=== PATIENT | male | born 1940 | race Caucasian/White ===

== ENCOUNTER 2017-10-22 10:21 | Day surgery (SDC) | payer MEDICARE, OTHER ==
[~2017-10-22 10:21] MED LIST: CHONDR SU A NA/HYALUR INTRAOC KIT (SURGICARE) ONE; EPINEPHRINE INJ/PF 1 MG/1 ML AMPULE ONE; KETOROLAC TROMETHAMINE 0.45% 4 DROP/0.4 ML DROPERETTE OD PRN; LIDOCAINE 1%/PHENYLEPHRINE 1.5% 1 ML VIAL ONE; MIDAZOLAM 2 MG/2 ML INJ ONE
[2017-10-22] MEDS: CYCLOPENTOLATE 0.2%/PHENYLEPHRINE 1% OPH SOLN 2 ML OD PRN ×3 (11:05→11:36)
[2017-10-22] MEDS: TROPICAMIDE 1% OPH SOLN 3 ML OD PRN ×3 (11:05→11:36)
[2017-10-22] MEDS: BESIFLOXACIN HCL 0.6% OPH SUSP 5 ML BOTTLE OD PRN ×3 (11:06→12:05)
[2017-10-22] MEDS: TETRACAINE HCL 0.5% OPH SOLN 2 ML OD PRN ×3 (11:07→11:41)
--- NOTE | 2017-10-22 20:51 | [facility] OPERATIVE REPORT E ---
[facility] Operative Report NAME: JAQUELIN TAPIA AGE: 77Y DATE OF SURGERY: 10/22/2017 ROOM: PREOPERATIVE DIAGNOSIS: CATARACT, RIGHT EYE. POSTOPERATIVE DIAGNOSIS: CATARACT, RIGHT EYE. OPERATION: Cataract extraction with insertion of an IOL of the right eye. SURGEON: ROBERTO WEI M.D. ANESTHESIA: Topical. PROCEDURE: After obtaining appropriate consent, the patient's right eye was prepped and draped in sterile fashion as well as the surgeon in a sterile manner and cataract surgery was started. First a paracentesis blade was used to make a side-port incision. Viscoelastic was used to inflate the anterior chamber. Next a 2.4 mm incision was made with a 2.4 mm blade, clear corneal temporally. A continuous capsulorrhexis was made using a cystotome and Utrata forceps. Following this hydrodissection was carried out to make the lens fully loose and mobile and it was rotated 90 degrees. Following this, a ytkzvi-fwz-qvsxnzt technique was used to phacoemulsify the lens with a CDE of 6.85. The remaining cortex was removed with irrigation/aspiration. Provisc was instilled into the capsular bag to inflate the bag. A SN60WF, 21.0 diopter lens was placed. The remaining viscoelastic material was removed with irrigation/aspiration. Following this, the incision was found to be watertight. Besivance was instilled into the eye and a protective shield was placed over the eye. The patient returned to the postoperative recovery in stable condition. DICTATING PHYSICIAN: ROBERTO WEI M.D. [id number] PHY#: [id number] ID: [id number] JOB#: [id number] ACCT: [id number] cc:ROBERTO WEI M.D. >
--- NOTE | 2017-10-22 20:51 | DISCHARGE SUMMARY E ---
Discharge Summary NAME: JAQUELIN TAPIA : 1940 AGE: 77Y ADMITTED: 10/22/2017 DISCHARGED: 10/22/2017 FINAL DIAGNOSIS: Cataract, right eye. HOSPITAL COURSE: This is a 77-year-old male who underwent cataract extraction of the left eye. He underwent surgery because he was having difficulty seeing small print. DISCHARGE INSTRUCTIONS: He should be on a regular diet. No bending at her waist, no heavy lifting. He should use her Besivance, Ilevro and Durezol at 3:00 p.m. and 8:00 p.m. Sleep with a rigid shield. I will see him for a 1-day postoperative tomorrow. DICTATING PHYSICIAN: ROBERTO WEI M.D. [id number] PHY#: [id number] ID: [id number] JOB#: [id number] ACCT: [id number] cc:ROBERTO WEI M.D. >
== END 2017-10-22 12:40 | disposition home or self-care (01) ==
LOC: SC 10:21
PROVIDERS: ATTEND Internal Medicine
DX: H25.813 Combined forms of age-related cataract, bilateral (principal); H57.03 Miosis; H43.813 Vitreous degeneration, bilateral; I10 Essential (primary) hypertension; J45.909 Unspecified asthma, uncomplicated; K21.9 Gastro-esophageal reflux disease without esophagitis; Z87.891 Personal history of nicotine dependence; Z88.8 Allergy status to other drugs, medicaments and biological substances; Z88.1 Allergy status to other antibiotic agents; Z79.01 Long term (current) use of anticoagulants; Z79.899 Other long term (current) drug therapy
CPT/HCPCS: 66984; V2632; J2250; J3490; A9270; J0171; J2370; 142

== ENCOUNTER 2017-11-26 14:30 | Emergency (ER) | payer MEDICARE ==
[2017-11-26] MEDS ORDERED: DIPHENHYDRAMINE HCL 50 MG/ML VIAL IV ONE (14:58)
[2017-11-26] MEDS ORDERED: FENTANYL CITRATE INJ/PF 100 MCG/2 ML AMPUL IV ONE ×2 (14:58→15:50)
--- NOTE | 2017-11-26 14:59 | ER Document Report ---
ED Medical Screen (RME) - General Chief Complaint: Fall Injury Stated Complaint: FALL,SHOULDER AND BACK PAIN Time Seen by Provider: 11/26/17 14:50 Notes: 77 years old male, with multiple medical problem including valvotomy, on Coumadin, fell off from a ladder and hurt his left lateral side of the chest and back. Presents today with pain and discomfort. Denies any loss of consciousness denies any head injury, denies any neck pain neck stiffness. Denies any nausea vomiting abdominal pain. Ambulatory. Denies any injury to the upper limbs or lower limbs. TRAVEL OUTSIDE OF THE [place] IN LAST 30 DAYS: No - Related Data Allergies/Adverse Reactions: diphenhydramine HCl [From Benadryl] Allergy (Mild, Verified 11/26/17 14:33) rash hydrocodone [Hydrocodone] Allergy (Mild, Verified 11/26/17 14:33) rash levofloxacin [From Levaquin] Allergy (Mild, Verified 11/26/17 14:33) rash amiodarone [Amiodarone] Allergy (Verified 11/26/17 14:33) Hives ampicillin [Ampicillin] Allergy (Verified 11/26/17 14:33) Hives cephalexin [Cephalexin] Allergy (Verified 11/26/17 14:33) Hives Cephalosporins Allergy (Verified 11/26/17 14:33) Hives clindamycin [Clindamycin] Allergy (Verified 11/26/17 14:33) Hives gentamicin [Gentamicin] Allergy (Verified 11/26/17 14:33) Hives hydromorphone [Hydromorphone] Allergy (Verified 11/26/17 14:33) Hives vancomycin [Vancomycin] Allergy (Verified 11/26/17 14:33) Hives Past Medical History - Past Medical History Cardiac Medical History: Reports: Hx Hypertension - MEDICATED TO MAINTAIN HEATHY BP FOR MITRAL VALVE Denies: Hx Coronary Artery Disease, Hx Heart Attack Pulmonary Medical History: Reports: Hx Pneumonia - hx of 2004 Denies: Hx Asthma, Hx Bronchitis, Hx COPD Neurological Medical History: Denies: Hx Cerebrovascular Accident, Hx Seizures GI Medical History: Denies: Hx Hepatitis, Hx Hiatal Hernia, Hx Ulcer Musculoskeltal Medical History: Denies Hx Arthritis Infectious Medical History: Denies: Hx Hepatitis Past Surgical History: Reports: Hx Cardiac Surgery - valve replacement 1999, Hx Open Heart Surgery - 1999. Denies: Hx Pacemaker Physical Exam - Vital signs Vitals: Temp Pulse Resp BP Pulse Ox 97.4 F 64 18 121/60 96 11/26/17 14:38 11/26/17 14:38 11/26/17 14:38 11/26/17 14:38 11/26/17 14:38 Course - Vital Signs Vital signs: Temp Pulse Resp BP Pulse Ox 97.4 F 64 18 121/60 96 11/26/17 14:38 11/26/17 14:38 11/26/17 14:38 11/26/17 14:38 11/26/17 14:38 Doctor's Discharge - Discharge Referrals: OSVALDO GLASGOW MD [Primary Care Provider] - Follow up as needed
[2017-11-26 15:26] LABS: HEMOGLOBIN 15.5 g/dL (13.5-17.0); MEAN CORPUSCULAR HEMOGLOBIN 31.4 pg (27.0-33.4); MEAN CORPUSCULAR HGB CONC 33.7 g/dL (32.0-36.0); MEAN CORPUSCULAR VOLUME 93 fl (80-97); PLATELET COUNT 163 10^3/uL (150-450); RED BLOOD COUNT 4.94 10^6/uL (4.35-5.55); RED CELL DISTRIBUTION WIDTH 13.3 % (11.5-14.0); WHITE BLOOD COUNT 9.6 10^3/uL (4.0-10.5)
[2017-11-26 15:33] LABS: INTERNATIONAL RATION (INR) 3.18
[2017-11-26 15:46] LABS: ALANINE AMINOTRANSFERASE 38 U/L (21-72); ALBUMIN 4.6 g/dL (3.5-5.0); ALKALINE PHOSPHATASE 56 U/L (38-126); ANION GAP 9 (5-19); ASPARTATE AMINO TRANSFERASE 43 U/L (17-59); BILIRUBIN,DIRECT 0.4 mg/dL (0.0-0.4); BILIRUBIN,TOTAL 0.9 mg/dL (0.2-1.3); BLOOD UREA NITROGEN 32 mg/dL (7-20); CALCIUM 9.3 mg/dL (8.4-10.2); CARBON DIOXIDE 28 mmol/L (22-30); CHLORIDE 104 mmol/L (98-107); GLUCOSE 97 mg/dL (75-110); POTASSIUM 5.2 mmol/L (3.6-5.0); SODIUM 140.6 mmol/L (137-145); TOTAL PROTEIN 7.5 g/dL (6.3-8.2)
--- NOTE | 2017-11-26 15:49 | RADIOLOGY REPORT (SQ) ---
EXAM DESCRIPTION: CT HEAD WITHOUT COMPLETED DATE/TIME: 11/26/2017 3:40 pm REASON FOR STUDY: fall, injury-head, cervical, thoracic, lumbar spin COMPARISON: None. TECHNIQUE: Axial images acquired through the brain without intravenous contrast. Images reviewed wi th bone, brain and subdural windows. Images stored on PACS. All CT scanners at this facility use dose modulation, iterative reconstruction, and/or weight based d osing when appropriate to reduce radiation dose to as low as reasonably achievable (ALARA). [facility]: Dose Right [facility]: CareDose [facility]: Dose Right [facility]: Teradose 4D [facility]: Smart [employer] RADIATION DOSE: CT Rad equipment meets quality standard of care and radiation dose reduction techniq ues were employed. CTDIvol: 53.2 mGy. DLP: 1017 mGy-cm. mGy. LIMITATIONS: None. FINDINGS: VENTRICLES: Prominent. CEREBRUM: No masses. No hemorrhage. No midline shift. Areas of low density in the white matter mos t likely due to chronic micro-vascular ischemic change. No evidence for acute infarction. CEREBELLUM: No masses. No hemorrhage. No alteration of density. No evidence for acute infarction. EXTRAAXIAL SPACES: Mild age-related involutional change. No fluid collections. No masses. ORBITS AND GLOBE: No intra- or extraconal masses. Normal contour of globe without masses. CALVARIUM: No fracture. PARANASAL SINUSES: No fluid or mucosal thickening. SOFT TISSUES: No mass or hematoma. OTHER: No other significant finding. IMPRESSION: MILD CHRONIC CHANGES OF ATROPHY AND MICROVASCULAR ISCHEMIA. NO ACUTE PROCESS. EVIDENCE OF ACUTE STROKE: NO. TECHNICAL DOCUMENTATION: JOB ID: [id number] Quality ID # [id number]: Final reports with documentation of one or more dose reduction techniques (e.g., Au tomated exposure control, adjustment of the mA and/or kV according to patient size, use of iterative reconstruction technique) 2010 [employer]- All Rights Reserved Reading location - IP/workstation name: [email or web address]
--- NOTE | 2017-11-26 15:50 | RADIOLOGY REPORT (SQ) ---
EXAM DESCRIPTION: CT LUMBAR SPINE WITHOUT COMPLETED DATE/TIME: 11/26/2017 3:40 pm REASON FOR STUDY: fall, injury-head, cervical, thoracic, lumbar spin COMPARISON: None. TECHNIQUE: Axial images acquired through the lumbar spine without intravenous contrast. Images revi ewed with lung, soft tissue and bone windows. Reconstructed coronal and sagittal MPR images reviewed . All images stored on PACS. All CT scanners at this facility use dose modulation, iterative reconstruction, and/or weight based d osing when appropriate to reduce radiation dose to as low as reasonably achievable (ALARA). [facility]: Dose Right [facility]: CareDose [facility]: Dose Right [facility]: Teradose 4D [facility]: Aerospike RADIATION DOSE: mGy. LIMITATIONS: None. FINDINGS: SEGMENTATION: Normal. No transitional anatomy. ALIGNMENT: Normal. VERTEBRAL BODIES: No fractures. No dislocation. No acute findings. DISCS: There is annular disc bulging at L5-S1. PEDICLES, TRANSVERSE PROCESSES: No fractures. No dislocation. No acute findings. FACETS, POSTERIOR ELEMENTS: No fractures. No dislocation. No spinal stenosis. HARDWARE: None in the spine. VISUALIZED RIBS: No fractures. SOFT TISSUES: No significant or acute finding in adjacent soft tissues. OTHER: No other significant finding. IMPRESSION: Annular disc bulging at L5-S1. No acute findings. TECHNICAL DOCUMENTATION: JOB ID: [id number] Quality ID # [id number]: Final reports with documentation of one or more dose reduction techniques (e.g., Au tomated exposure control, adjustment of the mA and/or kV according to patient size, use of iterative reconstruction technique) 2010 [employer]- All Rights Reserved Reading location - IP/workstation name: [email or web address]
--- NOTE | 2017-11-26 15:50 | RADIOLOGY REPORT (SQ) ---
EXAM DESCRIPTION: CT CERVICAL SPINE WITHOUT COMPLETED DATE/TIME: 11/26/2017 3:40 pm REASON FOR STUDY: fall, injury-head, cervical, thoracic, lumbar spin COMPARISON: None. TECHNIQUE: Axial images acquired through the cervical spine without intravenous contrast. Images re viewed with lung, soft tissue and bone windows. Reconstructed coronal and sagittal MPR images review ed. Images stored on PACS. All CT scanners at this facility use dose modulation, iterative reconstruction, and/or weight based d osing when appropriate to reduce radiation dose to as low as reasonably achievable (ALARA). [facility]: Dose Right [facility]: CareDose [facility]: Dose Right [facility]: Teradose 4D [facility]: [employer] RADIATION DOSE: CT Rad equipment meets quality standard of care and radiation dose reduction techniq ues were employed. CTDIvol: 19.5 mGy. DLP: 441 mGy-cm. mGy. LIMITATIONS: None. FINDINGS: ALIGNMENT: Anatomic. MINERALIZATION: Normal. VERTEBRAL BODIES: No fractures or dislocation. DISCS: Multilevel disc space narrowing with osteophytes. FACETS, LATERAL MASSES, POSTERIOR ELEMENTS: Facet arthropathy. No fractures. No dislocation. No ac yuri findings. HARDWARE: None in the spine. VISUALIZED RIBS: No fractures. LUNG APICES AND SOFT TISSUES: No significant or acute findings. OTHER: No other significant finding. IMPRESSION: CHRONIC DEGENERATIVE CHANGES. NO ACUTE FINDINGS. TECHNICAL DOCUMENTATION: JOB ID: [id number] Quality ID # [id number]: Final reports with documentation of one or more dose reduction techniques (e.g., Au tomated exposure control, adjustment of the mA and/or kV according to patient size, use of iterative reconstruction technique) 2010 [email or web address]- All Rights Reserved Reading location - IP/workstation name: [email or web address]
--- NOTE | 2017-11-26 15:51 | RADIOLOGY REPORT (SQ) ---
EXAM DESCRIPTION: CT CHEST WITHOUT COMPLETED DATE/TIME: 11/26/2017 3:40 pm REASON FOR STUDY: fall, injury-head, cervical, thoracic, lumbar spin COMPARISON: None. TECHNIQUE: CT scan performed of the chest without intravenous contrast. Images reviewed with lung, soft tissue and bone windows. Reconstructed coronal and sagittal MPR images reviewed. All images st ored on PACS. All CT scanners at this facility use dose modulation, iterative reconstruction, and/or weight based d osing when appropriate to reduce radiation dose to as low as reasonably achievable (ALARA). [facility]: Dose Right [facility]: CareDose [facility]: Dose Right [facility]: Teradose 4D [facility]: [employer] RADIATION DOSE: CT Rad equipment meets quality standard of care and radiation dose reduction techniq ues were employed. CTDIvol: 14.4 mGy. DLP: 677 mGy-cm. mGy. LIMITATIONS: No technical limitations. FINDINGS: LUNGS AND PLEURA: No masses, infiltrates, or pneumothorax. No pleural effusions or pleura l calcifications. HILAR AND MEDIASTINAL STRUCTURES: No identified masses or abnormal nodes. No obvious aneurysm. HEART AND VASCULAR STRUCTURES: No aneurysm. No pericardial effusion. UPPER ABDOMEN: A couple of low-density hepatic lesions are seen. THYROID AND OTHER SOFT TISSUES: No masses. No adenopathy. BONES: No significant finding. HARDWARE: Sternotomy wires. Heart valve. OTHER: No other significant findings. IMPRESSION: No acute findings in the thorax. There are what appear to be a couple of hepatic cysts. TECHNICAL DOCUMENTATION: JOB ID: [id number] Quality ID # [id number]: Final reports with documentation of one or more dose reduction techniques (e.g., Au tomated exposure control, adjustment of the mA and/or kV according to patient size, use of iterative reconstruction technique) 2010 [employer]- All Rights Reserved Reading location - IP/workstation name: [email or web address]
--- NOTE | 2017-11-26 15:53 | ER Document Report ---
ED General - General Chief Complaint: Fall Injury Stated Complaint: FALL,SHOULDER AND BACK PAIN Time Seen by Provider: 11/26/17 14:50 Mode of Arrival: Ambulatory Information source: Patient, Relative, [facility] Records Notes: 77-year-old male with hypertension, hyperlipidemia, chronic kidney disease presents with complaint of back pain. Patient states that just prior to arrival he was on top of a ladder approximately 6 feet off the ground when the ladder slipped from underneath him causing him to fall backwards striking his back on the corner of the shed. Patient denies any loss of consciousness. He does state that he was not able to get up without assistance. He currently denies headache, blurred vision, nausea, vomiting, chest pain, abdominal pain. He denies any preceding chest pain, dizziness. Patient is on Coumadin. TRAVEL OUTSIDE OF THE [place] IN LAST 30 DAYS: No - HPI Onset: Just prior to arrival Onset/Duration: Sudden Quality of pain: Throbbing Severity: Moderate Associated symptoms: None Exacerbated by: Movement Relieved by: Remaining still Similar symptoms previously: No Recently seen / treated by doctor: No - Related Data Allergies/Adverse Reactions: diphenhydramine HCl [From Benadryl] Allergy (Mild, Verified 11/26/17 14:33) rash hydrocodone [Hydrocodone] Allergy (Mild, Verified 11/26/17 14:33) rash levofloxacin [From Levaquin] Allergy (Mild, Verified 11/26/17 14:33) rash amiodarone [Amiodarone] Allergy (Verified 11/26/17 14:33) Hives ampicillin [Ampicillin] Allergy (Verified 11/26/17 14:33) Hives cephalexin [Cephalexin] Allergy (Verified 11/26/17 14:33) Hives Cephalosporins Allergy (Verified 11/26/17 14:33) Hives clindamycin [Clindamycin] Allergy (Verified 11/26/17 14:33) Hives gentamicin [Gentamicin] Allergy (Verified 11/26/17 14:33) Hives hydromorphone [Hydromorphone] Allergy (Verified 11/26/17 14:33) Hives vancomycin [Vancomycin] Allergy (Verified 11/26/17 14:33) Hives Past Medical History - General Information source: Patient, Relative, [facility] Records - Social History Smoking Status: Former Smoker Chew tobacco use (# tins/day): No Frequency of alcohol use: None Drug Abuse: None Family History: Reviewed & Not Pertinent Patient has suicidal ideation: No Patient has homicidal ideation: No - Past Medical History Cardiac Medical History: Reports: Hx Hypercholesterolemia, Hx Hypertension - MEDICATED TO MAINTAIN HEATHY BP FOR MITRAL VALVE Denies: Hx Coronary Artery Disease, Hx Heart Attack Pulmonary Medical History: Reports: Hx Pneumonia - hx of 2004 Denies: Hx Asthma, Hx Bronchitis, Hx COPD Neurological Medical History: Denies: Hx Cerebrovascular Accident, Hx Seizures Renal/ Medical History: Denies: Hx Peritoneal Dialysis GI Medical History: Denies: Hx Hepatitis, Hx Hiatal Hernia, Hx Ulcer Musculoskeletal Medical History: Denies Hx Arthritis Infectious Medical History: Denies: Hx Hepatitis Past Surgical History: Reports: Hx Cardiac Surgery - valve replacement 1999, Hx Open Heart Surgery - 1999. Denies: Hx Pacemaker Review of Systems - Review of Systems Notes: REVIEW OF SYSTEMS: CONSTITUTIONAL : Denies fever, chills, or sweats. Denies recent illness. Denies weight loss, recent hospitalizations. EENT: Denies visual changes, eye pain. Denies sore throat, oral lesions, difficulty swallowing. CARDIOVASCULAR: Denies chest pain. Denies palpitations. Denies lower extremity edema. RESPIRATORY: Denies cough. Denies shortness of breath, wheezing. GASTROINTESTINAL: Denies abdominal pain or distention. Denies nausea, vomiting , or diarrhea. Denies blood in vomitus, stools, or per rectum. Denies black, tarry stools. Denies constipation. GENITOURINARY: Denies difficulty urinating, painful urination, frequency, blood in urine, testicular pain or penile discharge. MUSCULOSKELETAL: Denies joint pain or swelling. SKIN: Denies rash, lesions or sores. HEMATOLOGIC : Denies easy bruising or bleeding. LYMPHATIC: Denies swollen glands. NEUROLOGICAL: Denies confusion or altered mental status. Denies loss of consciousness. Denies dizziness or lightheadedness. Denies headache. Denies weakness or paralysis. Denies problems difficulty with ambulation, slurred speech. Denies sensory loss, numbness, or tingling. Denies seizures. PSYCHIATRIC: Denies anxiety or stress. Denies depression, suicidal ideation, or Physical Exam - Vital signs Vitals: Temp Pulse Resp BP Pulse Ox 97.4 F 64 18 121/60 96 11/26/17 14:38 11/26/17 14:38 11/26/17 14:38 11/26/17 14:38 11/26/17 14:38 Interpretation: Normal - Notes Notes: PHYSICAL EXAMINATION: GENERAL: Well-appearing, well-nourished and in no acute distress. HEAD: Atraumatic, normocephalic. EYES: Pupils equal round and reactive to light, extraocular movements intact, sclera anicteric, conjunctiva are normal. ENT: Nares patent, oropharynx clear without exudates. Moist mucous membranes. NECK: Normal range of motion, supple without lymphadenopathy LUNGS: Breath sounds clear to auscultation bilaterally and equal. No wheezes rales or rhonchi. HEART: Regular rate and rhythm without murmurs ABDOMEN: Soft, nontender, nondistended abdomen. No guarding, no rebound. No masses appreciated. Musculoskeletal: Normal range of motion, no pitting or edema. No cyanosis. Midline tenderness to the thoracic spine at the level of T7. NEUROLOGICAL: Cranial nerves grossly intact. Normal speech, normal gait. Normal sensory, motor exams PSYCH: Normal mood, normal affect. SKIN: Large superficial abrasion across upper back Course - Re-evaluation Re-evalutation: 11/28/17 02:20 Laboratory 11/26/17 11/26/17 11/26/17 15:15 15:15 15:15 WBC 9.6 RBC 4.94 Hgb 15.5 Hct 46.0 MCV 93 MCH 31.4 MCHC 33.7 RDW 13.3 Plt Count 163 PT 34.0 H INR 3.18 Sodium 140.6 Potassium 5.2 H Chloride 104 Carbon Dioxide 28 Anion Gap 9 BUN 32 H Creatinine 1.82 H Est GFR ( Amer) 44 L Est GFR (Non-Af Amer) 36 L Glucose 97 Calcium 9.3 Total Bilirubin 0.9 Direct Bilirubin 0.4 Neonat Total Bilirubin Not Reportable Neonat Direct Bilirubin Not Reportable Neonat Indirect Bili Not Reportable AST 43 ALT 38 Alkaline Phosphatase 56 Total Protein 7.5 Albumin 4.[address] 11/26/17 14:55 IMPRESSION: CHRONIC DEGENERATIVE CHANGES. NO ACUTE FINDINGS. Chest CT 11/26/17 14:55 IMPRESSION: No acute findings in the thorax. There are what appear to be a couple of hepatic cysts. Head CT 11/26/17 14:55 IMPRESSION: MILD CHRONIC CHANGES OF ATROPHY AND MICROVASCULAR ISCHEMIA. NO ACUTE PROCESS. EVIDENCE OF ACUTE STROKE: NO. Lumbar Spine CT 11/26/17 14:55 IMPRESSION: Annular disc bulging at L5-S1. No acute findings. 77-year-old male with hypertension, hyperlipidemia, chronic kidney disease presents with complaint of back pain. Patient states that just prior to arrival he was on top of a ladder approximately 6 feet off the ground when the ladder slipped from underneath him causing him to fall backwards striking his back on the corner of the shed. Patient denies any loss of consciousness. He does state that he was not able to get up without assistance. He currently denies headache, blurred vision, nausea, vomiting, chest pain, abdominal pain. He denies any preceding chest pain, dizziness. Patient is on Coumadin. Vital signs stable upon arrival. Exam significant for midline tenderness of thoracic spine. CT of the head, chest, cervical spine and lumbar spine were ordered by provider in triage and negative for any acute findings. Patient found to have mildly elevated potassium 5.2. CMP does show renal insufficiency which the patient reports to be chronic. EKG shows no concerning changes. Patient did receive fentanyl during his ED course. On reevaluation he states his pain has improved. Presentation of a well appearing elderly patient in no acute distress , vitals within normal limits after a mechanical fall. Patient denies a syncopal episode as the cause for today's fall. No focal neurologic deficits on exam, no evidence of basilar skull fracture on exam without evidence of hemotympanum, raccoon eyes, or periauricular hematoma. No papilledema. Patient is on anticoagulation. GCS is 15. No loss of consciousness. No episodes of vomiting. However, based on patient's age a CT of the head has been obtained which is negative for any acute intracranial bleed. Likewise, patient was unable to be clinically cleared due to age by [place] cervical spine criteria. A CT of the cervical spine was also obtained and likewise is negative for any acute fracture. Patient has no focal deformities or limited range of motion in any joint space. Chest and abdominal exam are benign without any focal tenderness, shortness of breath, or bruising over the chest or abdominal wall. Patient has no flank tenderness. There is no obvious findings on trauma exam today and therefore no further imaging or evaluation will be obtained at this time. At this time will discharge with return precautions and follow-up recommendations. Verbal discharge instructions given a the bedside and opportunity for questions given. Medication warnings reviewed. Patient is in agreement with this plan and has verbalized understanding of return precautions and the need for primary care follow-up in the next 24-72 hours. 11/28/17 02:20 11/28/17 02:21 11/28/17 02:22 - Vital Signs Vital signs: Temp Pulse Resp BP Pulse Ox 97.4 F 64 20 138/79 H 96 11/26/17 14:38 11/26/17 14:38 11/26/17 18:59 11/26/17 18:59 11/26/17 18:59 - Laboratory Result Diagrams: 11/26/17 15:15 11/26/17 15:15 Laboratory results interpreted by me: 11/26/17 11/26/17 15:15 15:15 PT 34.0 H Potassium 5.2 H BUN 32 H Creatinine 1.82 H Est GFR ( Amer) 44 L Est GFR (Non-Af Amer) 36 L - Diagnostic Test Radiology reviewed: Image reviewed, Reports reviewed Discharge - Discharge Clinical Impression: Abrasion Fall Qualifiers: Encounter type: initial encounter Qualified Code(s): W19.XXXA - Unspecified fall, initial encounter Contusion, back Qualifiers: Encounter type: initial encounter Laterality: unspecified laterality Qualified Code(s): S20.229A - Contusion of unspecified back wall of thorax, initial encounter Strain of thoracic spine Qualifiers: Encounter type: initial encounter Qualified Code(s): S29.019A - Strain of muscle and tendon of unspecified wall of thorax, initial encounter Condition: Good Disposition: HOME, SELF-CARE Instructions: Abrasions ([facility]), Contusion ([facility]), Kidney Function Abnormality ( [facility]), Upper Back Strain ([facility]) Additional Instructions: You have been seen in the Emergency Department (ED) today following a fall. Your workup today did not reveal any injuries that require you to stay in the hospital. You can expect, though, to be stiff and sore for the next several days. You can take Tylenol 1000 mg every 6 hours as needed for pain. Do not take Tylenol with the [place]. Please take one or the other. You can apply a hot pack or electric heating pad to the sore areas. You can also use topical "Aspercreme with lidocaine" to sore areas as needed. Please follow up with your primary care doctor as soon as possible regarding today's ED visit and your recent fall. Call your doctor or return to the ED if you develop a sudden or severe headache , confusion, slurred speech, facial droop, weakness or numbness in any arm or leg, extreme fatigue, vomiting more than two times, severe abdominal pain, or other symptoms that concern you. Most prescribed medications have multiple side effects. The safest thing to do is when filling your prescription please speak to your pharmacist regarding possible interactions with your normal home medications and over the counter medications such as Ibuprofen, Tylenol, Benadryl.. If you experience any symptoms that cause you discomfort or concern you should discontinue the medication immediately and return to the emergency room or call your primary care physician. Prescriptions: Hydrocodone/Acetaminophen [[place] 5-325 mg Tablet] 1 tab PO Q6H #10 tablet Tramadol HCl 50 mg PO Q8H #12 tablet Referrals: OSVALDO GLASGOW MD [Primary Care Provider] - Follow up as needed
[2017-11-26] MEDS ORDERED: NORMAL SALINE 1000 ML 1,000 ML IV ONE (16:55)
[2017-11-26 19:07] VITALS: BP 138/79
--- NOTE | 2017-11-26 20:03 | EKG REPORT ---
SEVERITY:- NORMAL ECG - SINUS RHYTHM : Confirmed by: Carmen Raygoza MD 26-Nov-2017 20:03:01
== END 2017-11-26 19:07 | disposition home or self-care (01) ==
LOC: ER 14:30
DX: S29.019A Strain of muscle and tendon of unspecified wall of thorax, initial encounter (principal); S20.229A Contusion of unspecified back wall of thorax, initial encounter; S20.419A Abrasion of unspecified back wall of thorax, initial encounter; M54.9 Dorsalgia, unspecified; I10 Essential (primary) hypertension; E78.5 Hyperlipidemia, unspecified; N18.9 Chronic kidney disease, unspecified; W11.XXXA Fall on and from ladder, initial encounter; Z87.891 Personal history of nicotine dependence; Z79.01 Long term (current) use of anticoagulants
CPT/HCPCS: 93005; 99284; 96361; 96374; 36415; 85027; 85610; 80053; 70450; 71250; 72125; 72131; 93010; J3010

== ENCOUNTER → 2018-04-07 | Day surgery (SDC) | payer MEDICARE, OTHER ==
--- NOTE | 2018-04-07 15:20 | RADIOLOGY REPORT (SQ) ---
EXAM DESCRIPTION: ARTHRO SHOULDER INJECTION; FLUORO/NEEDLE PLACEMENT COMPLETED DATE/TIME: 04/07/2018 3:08 pm REASON FOR STUDY: M75.102 UNSP ROTATR-CUFF TEAR/RUPTR OF LEFT SHOULDER, NOT TRAUMA M75.102 UNSP ROT ATR-CUFF TEAR/RUPTR OF LEFT SHOULDER, NOT TR COMPARISON: None. FLUOROSCOPY TIME: 17 seconds 1 digital fluoroscopic image saved to PACS. LIMITATIONS: None. PROCEDURE: Procedure, risks, benefits and alternatives explained to patient who then gave written co nsent. The posterior left glenohumeral joint at the shoulder was marked and a time out was called for correct procedure verification. Posterior entry site marked using fluoroscopic guidance. Shoulder prepped and draped using sterile technique. Local anesthesia achieved using 6 mL of 1% lidocaine inj ection. 22 gauge spinal needle introduced into the joint space under direct fluoroscopic visualizati on. Non-ionic contrast instilled to confirm intra-articular position. Dilute Omnipaque solution then injected. Needle removed and entry site covered with sterile bandage. No immediate complications not ed. TECHNIQUE: Digital images acquired during fluoroscopy and stored on PACS. Patient immediately take n to the MR suite for additional imaging. INJECTION LOCATION: Left posterior glenohumeral joint at the shoulder CONTRAST TYPE AND AMOUNT: 1 mL of Omnipaque 300 injected to confirm intra-articular needle placement followed by 10 mL of dilute Omnipaque/ saline for CT arthrogram. IMPRESSION: SUCCESSFUL NEEDLE PLACEMENT AND INJECTION FOR LEFT SHOULDER CT ARTHROGRAM USING POSTERIO R APPROACH. COMMENT: Quality ID [id number]: Final reports for procedures using fluoroscopy that document radiation exp osure indices, or exposure time and number of fluorographic images (if radiation exposure indices are not available) TECHNICAL DOCUMENTATION: JOB ID: [id number] [employer]- All Rights Reserved Reading location - IP/workstation name: [email or web address] [facility]-
--- NOTE | 2018-04-07 15:25 | RADIOLOGY REPORT (SQ) ---
EXAM DESCRIPTION: CT LT UPPER EXTREMITY WITH COMPLETED DATE/TIME: 04/07/2018 3:11 pm REASON FOR STUDY: M75.102 UNSP ROTATR-CUFF TEAR/RUPTR OF LEFT SHOULDER, NOT TRAUMA M75.102 UNSP ROT ATR-CUFF TEAR/RUPTR OF LEFT SHOULDER, NOT TR COMPARISON: None. TECHNIQUE: Axial imaging performed through the leftshoulder with reformatted oblique coronal and obl ique sagittal imaging windowed for bone and soft tissues. All CT scanners at this facility use dose modulation, iterative reconstruction, and/or weight based d osing when appropriate to reduce radiation dose to as low as reasonably achievable (ALARA). [facility]: Dose Right [facility]: CareDose [facility]: Dose Right [facility]: Teradose 4D [facility]: [employer] RADIATION DOSE: CT Rad equipment meets quality standard of care and radiation dose reduction techniq ues were employed. CTDIvol: 11.9 mGy. DLP: 302 mGy-cm. mGy. LIMITATIONS: None. FINDINGS: SOFT TISSUES: NO MASSES OR ADENOPATHY BONY ARCHITECTURE: Normal bone density for age. No fracture. No lytic or blastic lesions. GLENOHUMERAL JOINT: Normal alignment. Mild humeral head chondromalacia. No bulky bony spurring ACROMION AND AC JOINT: Mild joint space narrowing and bony spurring at the AC joint with mild narrowi ng of the subacromial space, best shown on sagittal images 54-56. ROTATOR CUFF: Small full-thickness tear anterior edge supraspinatus tendon, with leakage of contrast into the subacromial/subdeltoid bursa. Infraspinatus, subscapularis unremarkable GLENOID, LABRUM AND BICEPS: Grossly intact intra-articular long head biceps tendon. No definite supe rior labral tear. No paralabral cysts. OTHER: No other significant finding. IMPRESSION: Tiny anterior edge supraspinatus full thickness tendon tear. TECHNICAL DOCUMENTATION: JOB ID: [id number] Quality ID # [id number]: Final reports with documentation of one or more dose reduction techniques (e.g., Au tomated exposure control, adjustment of the mA and/or kV according to patient size, use of iterative reconstruction technique) 2010 [email or web address]- All Rights Reserved Reading location - IP/workstation name: [email or web address]
== END ==
LOC: RAD 13:35
PROVIDERS: ATTEND Family Medicine
DX: M75.102 Unspecified rotator cuff tear or rupture of left shoulder, not specified as traumatic (principal)
CPT/HCPCS: 23350; 77002

== ENCOUNTER 2018-04-10 11:06 | Emergency (ER) | payer MEDICARE ==
[2018-04-10 11:21] VITALS: BP 108/58
[2018-04-10] MEDS ORDERED: PREDNISONE 20 MG TABLET PO ONE (11:36)
--- NOTE | 2018-04-10 11:40 | ER Document Report ---
ED General - General Chief Complaint: Allergic Reaction Stated Complaint: POSSIBLE ALLERGIC REACTION Time Seen by Provider: 04/10/18 11:29 Primary Care Provider: MELANY ALLISON MD [COMMUNITY BASED STAFF] - Follow up in 3-5 days TRAVEL OUTSIDE OF THE [place] IN LAST 30 DAYS: No - HPI Patient complains to provider of: Itching allergic reaction Notes: Patient coming in itching allergic reaction. Patient states recently had a study performed with the injected dye into his shoulder for evaluation of her rotator cuff patient states since that time has continued to have itching he is already on hydroxyzine for itching at nighttime patient has a multitude of allergies. Patient otherwise denies any shortness of breath difficulty in breathing. Patient resting comfortably upon my evaluation except for itching his back - Related Data Allergies/Adverse Reactions: diphenhydramine HCl [From Benadryl] Allergy (Mild, Verified 11/26/17 14:33) rash hydrocodone [Hydrocodone] Allergy (Mild, Verified 11/26/17 14:33) rash levofloxacin [From Levaquin] Allergy (Mild, Verified 11/26/17 14:33) rash acetaminophen Allergy (Verified 04/10/18 11:09) amiodarone [Amiodarone] Allergy (Verified 11/26/17 14:33) Hives ampicillin [Ampicillin] Allergy (Verified 11/26/17 14:33) Hives cephalexin [Cephalexin] Allergy (Verified 11/26/17 14:33) Hives Cephalosporins Allergy (Verified 11/26/17 14:33) Hives clindamycin [Clindamycin] Allergy (Verified 11/26/17 14:33) Hives gentamicin [Gentamicin] Allergy (Verified 11/26/17 14:33) Hives hydromorphone [Hydromorphone] Allergy (Verified 11/26/17 14:33) Hives phenylephrine Allergy (Verified 04/10/18 11:09) pramipexole [From Mirapex] Allergy (Verified 04/10/18 11:09) vancomycin [Vancomycin] Allergy (Verified 11/26/17 14:33) Hives Past Medical History - Social History Smoking Status: Never Smoker Family History: Reviewed & Not Pertinent Patient has suicidal ideation: No Patient has homicidal ideation: No - Past Medical History Cardiac Medical History: Reports: Hx Hypercholesterolemia, Hx Hypertension - MEDICATED TO MAINTAIN HEATHY BP FOR MITRAL VALVE Denies: Hx Coronary Artery Disease, Hx Heart Attack Pulmonary Medical History: Reports: Hx Pneumonia - hx of 2004 Denies: Hx Asthma, Hx Bronchitis, Hx COPD Neurological Medical History: Denies: Hx Cerebrovascular Accident, Hx Seizures Renal/ Medical History: Denies: Hx Peritoneal Dialysis GI Medical History: Denies: Hx Hepatitis, Hx Hiatal Hernia, Hx Ulcer Musculoskeletal Medical History: Denies Hx Arthritis Infectious Medical History: Denies: Hx Hepatitis Past Surgical History: Reports: Hx Cardiac Surgery - valve replacement 1999, Hx Open Heart Surgery - 1999. Denies: Hx Pacemaker Review of Systems - Review of Systems Constitutional: No symptoms reported EENT: No symptoms reported Cardiovascular: No symptoms reported Respiratory: No symptoms reported Gastrointestinal: No symptoms reported Genitourinary: No symptoms reported Male Genitourinary: No symptoms reported Musculoskeletal: No symptoms reported Skin: No symptoms reported Hematologic/Lymphatic: No symptoms reported Neurological/Psychological: Other - Rash and itching -: Yes All other systems reviewed and negative Physical Exam - Vital signs Vitals: Temp Pulse Resp BP Pulse Ox 98.1 F 69 18 108/58 L 97 04/10/18 11:17 04/10/18 11:17 04/10/18 11:17 04/10/18 11:17 04/10/18 11:17 Interpretation: Normal - General General appearance: Appears well, Alert - HEENT Head: Normocephalic, Atraumatic Eyes: Normal Conjunctiva: Normal Cornea: Normal Pupils: PERRL Pharynx: Normal Neck: Normal - Respiratory Respiratory status: No respiratory distress Chest status: Nontender Breath sounds: Normal Chest palpation: Normal - Cardiovascular Rhythm: Regular Heart sounds: Normal auscultation Murmur: No - Abdominal Inspection: Normal Distension: No distension Bowel sounds: Normal Tenderness: Nontender Organomegaly: No organomegaly - Back Back: Normal, Nontender - Extremities General upper extremity: Normal inspection, Nontender, Normal color, Normal ROM, Normal temperature General lower extremity: Normal inspection, Nontender, Normal color, Normal ROM, Normal temperature, Normal weight bearing. No: Shawn's sign - Neurological Neuro grossly intact: Yes Cognition: Normal Orientation: AAOx4 [place] Coma Scale Eye Opening: Spontaneous Paul Coma Scale Verbal: Oriented Paul Coma Scale Motor: Obeys Commands [place] Coma Scale Total: 15 Speech: Normal Motor strength normal: LUE, RUE, LLE, RLE Sensory: Normal - Psychological Associated symptoms: Normal affect, Normal mood - Skin Skin Temperature: Warm Skin Moisture: Dry Skin Color: Normal Skin irregularity: other - Patient with diffuse hives all of his back and upper chest Course - Re-evaluation Re-evalutation: 04/10/18 14:12 Patient with allergic reaction with no signs of airway compromise at this time. Patient will be instructed on how to use of hydroxyzine at home 25-50 mg every 6 hours as needed for itching will start the patient on prednisone. Patient also instructed not to take hot baths trying [id number] creams to help out with the itching. Patient states understanding discharged home - Vital Signs Vital signs: Temp Pulse Resp BP Pulse Ox 98.1 F 69 18 108/58 L 97 04/10/18 11:17 04/10/18 11:17 04/10/18 11:17 04/10/18 11:17 04/10/18 11:17 Discharge - Discharge Clinical Impression: Allergic reaction Qualifiers: Encounter type: initial encounter Qualified Code(s): T78.40XA - Allergy, unspecified, initial encounter Disposition: HOME, SELF-CARE Instructions: Acute Allergic Reaction ([facility]), Itching, Nonspecific ([facility]) Additional Instructions: Your evaluation today is consistent with a allergic reaction rash causing her itching. I would highly recommend that you follow-up with your primary care provider please let him know of your symptoms. You can continue with your hydroxyzine that you are already prescribed 25-50 mg every 6 hours for itching. We will also start you on a steroid please take steroids as prescribed return to ER if symptoms worsen. Prescriptions: Hydroxyzine HCl [Atarax 25 mg Tablet] 1 - 2 tab PO QID #25 tablet Prednisone [Deltasone] 60 mg PO DAILY #24 tablet Forms: Return to Work Referrals: MELANY ALLISON MD [COMMUNITY BASED STAFF] - Follow up in 3-5 days
== END 2018-04-10 11:43 | disposition home or self-care (01) ==
LOC: ER 11:06
DX: T78.40XA Allergy, unspecified, initial encounter (principal); L50.9 Urticaria, unspecified; X58.XXXA Exposure to other specified factors, initial encounter; I10 Essential (primary) hypertension; Z95.2 Presence of prosthetic heart valve; Z79.899 Other long term (current) drug therapy; Z88.8 Allergy status to other drugs, medicaments and biological substances; Z88.5 Allergy status to narcotic agent; Z88.0 Allergy status to penicillin; Z88.1 Allergy status to other antibiotic agents
CPT/HCPCS: 99283; A9270; J7512

== ENCOUNTER → 2018-07-26 | Outpatient (CLI) | payer MEDICARE, OTHER ==
[2018-07-26 10:03] LABS: APPEARANCE,URINE CLEAR; BILIRUBIN,URINE NEGATIVE (NEGATIVE); COLOR,URINE STRAW; GLUCOSE, URINE NEGATIVE (NEGATIVE); KETONES,URINE NEGATIVE (NEGATIVE); LEUKOCYTE ESTERASE,URINE NEGATIVE (NEGATIVE); NITRITE,URINE NEGATIVE (NEGATIVE); PROTEIN,URINE NEGATIVE (NEGATIVE); URINE SPECIFIC GRAVITY 1.009; UROBILINOGEN,URINE NEGATIVE mg/dL (<2.0)
[2018-07-26 10:13] LABS: ANION GAP 8 (5-19); BLOOD UREA NITROGEN 23 mg/dL (7-20); CALCIUM 9.6 mg/dL (8.4-10.2); CARBON DIOXIDE 28 mmol/L (22-30); CHLORIDE 105 mmol/L (98-107); GLUCOSE 88 mg/dL (75-110); POTASSIUM 4.6 mmol/L (3.6-5.0); SODIUM 141.2 mmol/L (137-145)
== END ==
LOC: OD 09:12
PROVIDERS: ATTEND Internal Medicine Nephrology
DX: N18.3 Chronic kidney disease, stage 3 (moderate) (principal)
CPT/HCPCS: 36415; 80048; 81001

== ENCOUNTER 2018-10-16 21:20 | Emergency (ER) | payer MEDICARE, OTHER ==
[2018-10-16] MEDS ORDERED: DEXAMETHASONE 4 MG TABLET PO ONE (22:10)
[2018-10-16] MEDS ORDERED: FAMOTIDINE 20 MG TABLET PO ONE (22:12)
--- NOTE | 2018-10-16 22:14 | ER Document Report ---
ED General - General Chief Complaint: Allergic Reaction Stated Complaint: HIVES Time Seen by Provider: 10/16/18 21:59 Primary Care Provider: WADE LINDSEY MD [ACTIVE STAFF] - Follow up as needed Mode of Arrival: Ambulatory Information source: Patient, Relative, [facility] Records Notes: 78-year-old male with hypertension, hyperlipidemia postop day 1 from rotator cuff repair surgery presents with a diffuse rash that started yesterday. Patient states that he was administered clindamycin despite his known allergy and quickly developed a rash after surgery. Patient is allergic to Benadryl and states he can only take prednisone. He denies any difficulty breathing, difficulty swallowing. TRAVEL OUTSIDE OF THE [place] IN LAST 30 DAYS: No - HPI Onset: Yesterday Onset/Duration: Sudden Quality of pain: Burning Severity: Mild Associated symptoms: denies: Chest pain, Nonproductive cough, Productive cough, Fever, Hurts to breath, Nausea, Vomiting, Shortness of breath Exacerbated by: Denies Relieved by: Denies Similar symptoms previously: Yes Recently seen / treated by doctor: Yes - Related Data Allergies/Adverse Reactions: diphenhydramine HCl [From Benadryl] Allergy (Mild, Verified 10/16/18 21:32) rash hydrocodone [Hydrocodone] Allergy (Mild, Verified 10/16/18 21:32) rash levofloxacin [From Levaquin] Allergy (Mild, Verified 10/16/18 21:32) rash acetaminophen Allergy (Verified 10/16/18 21:32) amiodarone [Amiodarone] Allergy (Verified 10/16/18 21:32) Hives ampicillin [Ampicillin] Allergy (Verified 10/16/18 21:32) Hives cephalexin [Cephalexin] Allergy (Verified 10/16/18 21:32) Hives Cephalosporins Allergy (Verified 10/16/18 21:32) Hives clindamycin [Clindamycin] Allergy (Verified 10/16/18 21:32) Hives gentamicin [Gentamicin] Allergy (Verified 10/16/18 21:32) Hives hydromorphone [Hydromorphone] Allergy (Verified 10/16/18 21:32) Hives phenylephrine Allergy (Verified 10/16/18 21:32) pramipexole [From Mirapex] Allergy (Verified 10/16/18 21:32) vancomycin [Vancomycin] Allergy (Verified 10/16/18 21:32) Hives Past Medical History - General Information source: Patient, Relative - Social History Smoking Status: Never Smoker Frequency of alcohol use: None Drug Abuse: None Lives with: Spouse/Significant other Family History: Reviewed & Not Pertinent Patient has suicidal ideation: No Patient has homicidal ideation: No - Past Medical History Cardiac Medical History: Reports: Hx Hypercholesterolemia, Hx Hypertension - MEDICATED TO MAINTAIN HEATHY BP FOR MITRAL VALVE Denies: Hx Coronary Artery Disease, Hx Heart Attack Pulmonary Medical History: Reports: Hx Pneumonia - hx of 2004 Denies: Hx Asthma, Hx Bronchitis, Hx COPD Neurological Medical History: Denies: Hx Cerebrovascular Accident, Hx Seizures Renal/ Medical History: Denies: Hx Peritoneal Dialysis GI Medical History: Denies: Hx Hepatitis, Hx Hiatal Hernia, Hx Ulcer Musculoskeletal Medical History: Denies Hx Arthritis Infectious Medical History: Denies: Hx Hepatitis Past Surgical History: Reports: Hx Cardiac Surgery - valve replacement 1999, Hx Open Heart Surgery - 1999. Denies: Hx Pacemaker Review of Systems - Review of Systems Notes: REVIEW OF SYSTEMS: CONSTITUTIONAL : Denies fever, chills, or sweats. Denies recent illness. Denies weight loss, recent hospitalizations. EENT: Denies visual changes, eye pain. Denies sore throat, oral lesions, difficulty swallowing. CARDIOVASCULAR: Denies chest pain. Denies palpitations. Denies lower extremity edema. RESPIRATORY: Denies cough. Denies shortness of breath, wheezing. GASTROINTESTINAL: Denies abdominal pain or distention. Denies nausea, vomiting, or diarrhea. Denies blood in vomitus, stools, or per rectum. Denies black, tarry stools. Denies constipation. GENITOURINARY: Denies difficulty urinating, painful urination, frequency, blood in urine, testicular pain or penile discharge. MUSCULOSKELETAL: Denies back or neck pain or stiffness. Denies joint pain or swelling. SKIN: Positive rash HEMATOLOGIC : Denies easy bruising or bleeding. LYMPHATIC: Denies swollen glands. NEUROLOGICAL: Denies confusion or altered mental status. Denies loss of co nsciousness. Denies dizziness or lightheadedness. Denies headache. Denies weakness or paralysis. Denies problems difficulty with ambulation, slurred speech. Denies sensory loss, numbness, or tingling. Denies seizures. PSYCHIATRIC: Denies anxiety or stress. Denies depression, suicidal ideation, or Physical Exam - Vital signs Vitals: Temp Pulse Resp BP Pulse Ox 97.5 F 66 18 130/73 H 91 L 10/16/18 21:26 10/16/18 21:26 10/16/18 21:26 10/16/18 21:26 10/16/18 21:26 - Notes Notes: PHYSICAL EXAMINATION: GENERAL: Well-appearing, well-nourished and in no acute distress. HEAD: Atraumatic, normocephalic. EYES: Pupils equal round and reactive to light, extraocular movements intact, sclera anicteric, conjunctiva are normal. ENT: Nares patent, oropharynx clear without exudates. Moist mucous membranes. NECK: Normal range of motion, supple without lymphadenopathy LUNGS: Breath sounds clear to auscultation bilaterally and equal. No wheezes rales or rhonchi. HEART: Regular rate and rhythm without murmurs ABDOMEN: Soft, nontender, nondistended abdomen. No guarding, no rebound. No masses appreciated. Musculoskeletal: Normal range of motion, no pitting or edema. No cyanosis. NEUROLOGICAL: Cranial nerves grossly intact. Normal speech, normal gait. Normal sensory, motor exams PSYCH: Normal mood, normal affect. SKIN: Diffuse erythematous blanching rash on the patient's back, abdomen chest upper and lower extremities. This rash is nonpustular, non-petechial, nonvesicular. Most consistent with drug rash. Course - Re-evaluation Re-evalutation: Temp Pulse Resp BP Pulse Ox 98.0 F 66 14 112/69 99 10/16/18 22:18 10/16/18 21:26 10/16/18 22:18 10/16/18 22:18 10/16/18 22:18 10/16/18 23:13 78-year-old male presents with a drug rash after receiving clindamycin during surgery yesterday. States he has had prior similar symptoms. He is allergic to Benadryl and states the only medication he can take when this occurs it is steroids. Patient was given 8 mg of Decadron. Patient presents with symptoms consistent with an allergic reaction without anaphylaxis. Only cutaneous involvement with multiple areas of hives. Vitals otherwise within normal limits at time of arrival. No respiratory, GI, cardiovascular, or oral pharyngeal symptoms. At this time will discharge with return precautions and follow-up recommendations. Verbal discharge instructions given a the bedside and opportunity for questions given. Medication warnings reviewed. Patient is in agreement with this plan and has verbalized understanding of return precautions and the need for primary care follow-up in the next 24-72 hours. - Vital Signs Vital signs: Temp Pulse Resp BP Pulse Ox 98.0 F 66 14 112/69 99 10/16/18 22:18 10/16/18 21:26 10/16/18 22:18 10/16/18 22:18 10/16/18 22:18 Discharge - Discharge Clinical Impression: Allergic reaction caused by a drug Qualifiers: Encounter type: initial encounter Qualified Code(s): T78.40XA - Allergy, unspecified, initial encounter Condition: Good Disposition: HOME, SELF-CARE Instructions: Acute Allergic Reaction to Drugs ([facility]) Prescriptions: Prednisone [Deltasone 20 mg Tablet] 2 tab PO DAILY 5 Days #10 tablet Referrals: WADE LINDSEY MD [ACTIVE STAFF] - Follow up as needed
[2018-10-16 22:23] VITALS: BP 112/69
== END 2018-10-16 23:03 | disposition home or self-care (01) ==
LOC: ER 21:20
DX: T78.40XA Allergy, unspecified, initial encounter (principal); L50.9 Urticaria, unspecified; I10 Essential (primary) hypertension; Z98.890 Other specified postprocedural states; Z79.899 Other long term (current) drug therapy
CPT/HCPCS: A9270 ×2; 99283

== ENCOUNTER 2018-10-19 11:23 | Emergency (ER) | payer MEDICARE, OTHER ==
--- NOTE | 2018-10-19 14:30 | RADIOLOGY REPORT (SQ) ---
EXAM DESCRIPTION: CT ABD/PELVIS NO ORAL OR IV COMPLETED DATE/TIME: 10/19/2018 2:09 pm REASON FOR STUDY: abd pain constipation COMPARISON: None. TECHNIQUE: CT scan of the abdomen and pelvis performed without intravenous or oral contrast. Images reviewed with lung, soft tissue, and bone windows. Reconstructed coronal and sagittal MPR images revi ewed. All images stored on PACS. All CT scanners at this facility use dose modulation, iterative reconstruction, and/or weight based d osing when appropriate to reduce radiation dose to as low as reasonably achievable (ALARA). [facility]: Dose Right [facility]: CareDose [facility]: Dose Right [facility]: Teradose 4D [facility]: [employer] RADIATION DOSE: CT Rad equipment meets quality standard of care and radiation dose reduction techniq ues were employed. CTDIvol: 14.1 mGy. DLP: 816 mGy-cm.mGy. LIMITATIONS: None. FINDINGS: LOWER CHEST: No significant findings. No nodules or infiltrates. NON-CONTRASTED LIVER, SPLEEN, ADRENALS: A couple small cystic lesions are present in the liver. The spleen and adrenal glands are unremarkable. PANCREAS: No masses. No peripancreatic inflammatory changes. GALLBLADDER: No identified stones by CT criteria. No inflammatory changes to suggest cholecystitis. RIGHT KIDNEY AND URETER: No suspicious masses. Assessment limited by lack of IV contrast. No signif icant calcifications. No hydronephrosis or hydroureter. LEFT KIDNEY AND URETER: No suspicious masses. Assessment limited by lack of IV contrast. No signifi cant calcifications. No hydronephrosis or hydroureter. AORTA AND RETROPERITONEUM: No aneurysm. No retroperitoneal masses or adenopathy. BOWEL AND PERITONEAL CAVITY: There is retained stool. No obvious bowel mass. APPENDIX: Not identified. PELVIS, BLADDER, AND ABDOMINAL WALL:Urinary bladder is normal. Dense stool in the rectum. BONES: No significant findings. OTHER: No other significant finding. IMPRESSION: Constipation. Cannot exclude fecal impaction. COMMENT: Quality ID # [id number]: Final reports with documentation of one or more dose reduction techniques (e.g., Automated exposure control, adjustment of the mA and/or kV according to patient size, use of iterative reconstruction technique) TECHNICAL DOCUMENTATION: JOB ID: [id number] [employer]- All Rights Reserved Reading location - IP/workstation name: [email or web address]
[2018-10-19] MEDS ORDERED: MINERAL OIL 30 ML UDCUP PR ONE (15:04)
--- NOTE | 2018-10-19 15:07 | ER Document Report ---
ED General - General Chief Complaint: Constipation Stated Complaint: ABDOMINAL PAIN Time Seen by Provider: 10/19/18 13:55 Primary Care Provider: OSVALDO GLASGOW MD [Primary Care Provider] - Follow up as needed Notes: 78-year-old male presents emergency department complaining constipation. Patient states he had surgery for his rotator cuff on Thursday and has been taking hydrocodone. States he has not had a bowel movement since , complaining of increasing pain in his lower abdomen and distention, difficulty urinating and some difficulty passing gas. Denies any vomiting, nausea, diarrhea or fevers. Denies prior constipation or abdominal surgeries TRAVEL OUTSIDE OF THE [place] IN LAST 30 DAYS: No - Related Data Allergies/Adverse Reactions: diphenhydramine HCl [From Benadryl] Allergy (Mild, Verified 10/19/18 11:25) rash hydrocodone [Hydrocodone] Allergy (Mild, Verified 10/19/18 11:25) rash levofloxacin [From Levaquin] Allergy (Mild, Verified 10/19/18 11:25) rash acetaminophen Allergy (Verified 10/19/18 11:25) amiodarone [Amiodarone] Allergy (Verified 10/19/18 11:25) Hives ampicillin [Ampicillin] Allergy (Verified 10/19/18 11:25) Hives cephalexin [Cephalexin] Allergy (Verified 10/19/18 11:25) Hives Cephalosporins Allergy (Verified 10/19/18 11:25) Hives clindamycin [Clindamycin] Allergy (Verified 10/19/18 11:25) Hives gentamicin [Gentamicin] Allergy (Verified 10/19/18 11:25) Hives hydromorphone [Hydromorphone] Allergy (Verified 10/19/18 11:25) Hives phenylephrine Allergy (Verified 10/19/18 11:25) pramipexole [From Mirapex] Allergy (Verified 10/19/18 11:25) vancomycin [Vancomycin] Allergy (Verified 10/19/18 11:25) Hives Past Medical History - General Information source: Patient - Social History Smoking Status: Never Smoker Chew tobacco use (# tins/day): No Frequency of alcohol use: None Drug Abuse: None Family History: Reviewed & Not Pertinent - Past Medical History Cardiac Medical History: Reports: Hx Hypercholesterolemia, Hx Hypertension - MEDICATED TO MAINTAIN HEATHY BP FOR MITRAL VALVE Denies: Hx Coronary Artery Disease, Hx Heart Attack Pulmonary Medical History: Reports: Hx Pneumonia - hx of 2004 Denies: Hx Asthma, Hx Bronchitis, Hx COPD Neurological Medical History: Denies: Hx Cerebrovascular Accident, Hx Seizures Renal/ Medical History: Denies: Hx Peritoneal Dialysis GI Medical History: Denies: Hx Hepatitis, Hx Hiatal Hernia, Hx Ulcer Musculoskeletal Medical History: Denies Hx Arthritis Infectious Medical History: Denies: Hx Hepatitis Past Surgical History: Reports: Hx Cardiac Surgery - valve replacement 1999, Hx Open Heart Surgery - 1999. Denies: Hx Pacemaker Review of Systems - Review of Systems Gastrointestinal: See HPI Genitourinary: See HPI -: Yes All other systems reviewed and negative Physical Exam - Vital signs Vitals: Temp Pulse Resp BP Pulse Ox 97.6 F 64 17 131/64 H 97 10/19/18 11:57 10/19/18 11:57 10/19/18 11:57 10/19/18 11:57 10/19/18 11:57 - Notes Notes: GENERAL: Alert, interacts well. No acute distress. HEAD: Normocephalic, atraumatic EYES: Pupils equal, round and reactive to light, extraocular movements intact. ENT: Oral mucosa moist, tongue midline. NECK: Full range of motion, supple, trachea midline. LUNGS: Clear to auscultation bilaterally, no wheezes, rales or rhonchi, no resp iratory distress. HEART: Regular rate and rhythm, no murmurs, gallops, rubs. ABDOMEN: Soft, mild lower abdominal tenderness palpation with mild distention, slightly decreased bowel sounds present in all 4 quadrants. EXTREMITIES: Moves all 4 extremities spontaneously, no edema, radial and dorsali s pedis pulses 2/4 bilaterally. No cyanosis. Left arm in a sling. NEUROLOGICAL: Alert and oriented x3, normal speech. PSYCH: Normal mood, normal affect. SKIN: Warm, Dry, normal turgor, no rashes or lesions noted. Course - Re-evaluation Re-evalutation: 10/19/18 16:10 CBC shows mild leukocytosis 11.3, CT scan shows constipation but no other acute process, CMP shows chronic kidney disease with BUN of 32 and creatinine 1.3, lipase normal, at this time patient is also complaining of some urinary retention however this could be related to the constipation. Patient is declined Layton catheter at this time, we will do an enema and see if relieving the pressure in his rectum relieves the urinary retention, if not patient will have Layton catheter placed. 10/19/18 17:08 Patient had a large amount of stool output with the enema, moderate amount of urine output. Patient is feeling much better would like to be discharged home. Patient is going to be discharged with magnesium citrate and MiraLAX. - Vital Signs Vital signs: Temp Pulse Resp BP Pulse Ox 97.6 F 64 17 131/64 H 97 10/19/18 11:57 10/19/18 11:57 10/19/18 11:57 10/19/18 11:57 10/19/18 11:57 - Laboratory Result Diagrams: 10/19/18 15:25 10/19/18 15:25 Laboratory results interpreted by me: 10/19/18 10/19/18 15:25 15:25 WBC 11.3 H RDW 14.4 H Seg Neutrophils % 80.8 H Lymphocytes % 7.8 L Absolute Neutrophils 9.1 H BUN 32 H Creatinine 1.30 H Est GFR (Non-Af Amer) 54 L Discharge - Discharge Clinical Impression: Therapeutic opioid induced constipation, Urinary retention Condition: Stable Disposition: HOME, SELF-CARE Additional Instructions: Constipation Constipation is a common problem. It is especially likely as you get older. Constipation is a common cause of abdominal pain, but sometimes causes no symptoms at all. Causes of constipation include certain medications, dehydration, diets, inactivity, and low-fiber intake. Rarely, it can be a symptom of underlying disease. The physician has evaluated you for this. Avoid constipation by eating a diet high in fiber, fruits, and vegetables. Drink plenty of liquids. Get regular exercise. If possible, avoid constipating medicines like narcotic pain medication. Some vitamin tablets can cause constipation. Stool softeners may be needed for difficult cases. An excellent stool softener is Konsyl which is available at [employer], and [employer] [facility] store. Just add a teaspoon to a glass of pineapple or orange juice daily or twice a day if needed. Laxatives are useful for occasional constipation. You should use them only when necessary. Too-frequent use can make your bowels dependent on them. Some over the counter laxatives available without prescription are: Milk of Magnesia, 1-2 tablespoons twice a day Dulcolax, 5 mg pill or 10 mg suppository. Citrate of Magnesia, 4-5 ounces a day for a day or two For acute constipation, Fleet's Enemas and Dulcolax suppositories are helpful. Chronic, penitentiary use of laxatives or enemas is not a good idea. Your bowel may become dependant on them. You do not need to have a bowel movement every day. Many people do fine with a bowel movement every three or four days. MiraLAX as an exception to this. You should call your doctor or return for re-evaluation if you pass blood in the stool, or if you develop fever or increasing abdominal pain. Please dissolve 1 scoop of MiraLAX in a glass of water once a day to treat constipation. You may increase to twice a day if needed to create soft bowel movements and you may decrease to every other day if you develop diarrhea. Today drink 1 bottle of magnesium citrate to complete bowel emptying. This will clear out your entire large intestine. This should also make it easier to urinate. If you are still having difficulty urinating in a day or 2 please return to the emergency department, you may need a Layton catheter. Prescriptions: Magnesium Citrate 296 ml PO NOW #1 solution Referrals: OSVALDO GLASGOW MD [Primary Care Provider] - Follow up as needed
[2018-10-19 15:46] LABS: ABSOLUTE EOSINOPHILS # (AUTO) 0.2 10^3/uL (0.0-0.6); ABSOLUTE LYMPHOCYTES (AUTO) 0.9 10^3/uL (0.5-4.7); ABSOLUTE MONOCYTES (AUTO) 1.1 10^3/uL (0.1-1.4); ABSOLUTE NEUT (AUTO) 9.1 10^3/uL (1.7-8.2); BASOPHILS % (AUTO) 0.3 % (0-2); EOSINOPHILS % (AUTO) 1.4 % (0-6); HEMATOCRIT 44.7 % (37.9-51.0); HEMOGLOBIN 14.8 g/dL (13.5-17.0); LYMPHOCYTES % (AUTO) 7.8 % (13-45); MEAN CORPUSCULAR HEMOGLOBIN 30.8 pg (27.0-33.4); MEAN CORPUSCULAR VOLUME 93 fl (80-97); MONOCYTES % (AUTO) 9.7 % (3-13); PLATELET COUNT 158 10^3/uL (150-450); RED BLOOD COUNT 4.79 10^6/uL (4.35-5.55); RED CELL DISTRIBUTION WIDTH 14.4 % (11.5-14.0); SEGMENTED NEUTROPHILS % (AUTO) 80.8 % (42-78); TOTAL CELLS COUNTED % (AUTO) 100 %; WHITE BLOOD COUNT 11.3 10^3/uL (4.0-10.5)
[2018-10-19 16:01] LABS: ALBUMIN 4.1 g/dL (3.5-5.0); ALKALINE PHOSPHATASE 43 U/L (38-126); ANION GAP 7 (5-19); ASPARTATE AMINO TRANSFERASE 42 U/L (17-59); BILIRUBIN,DIRECT 0.4 mg/dL (0.0-0.4); BILIRUBIN,TOTAL 0.7 mg/dL (0.2-1.3); BLOOD UREA NITROGEN 32 mg/dL (7-20); CALCIUM 9.2 mg/dL (8.4-10.2); CARBON DIOXIDE 25 mmol/L (22-30); CHLORIDE 106 mmol/L (98-107); GLUCOSE 106 mg/dL (75-110); POTASSIUM 4.9 mmol/L (3.6-5.0); TOTAL PROTEIN 6.4 g/dL (6.3-8.2)
[2018-10-19 17:15] LABS: APPEARANCE,URINE CLEAR; BILIRUBIN,URINE NEGATIVE (NEGATIVE); COLOR,URINE YELLOW; GLUCOSE, URINE NEGATIVE (NEGATIVE); KETONES,URINE NEGATIVE (NEGATIVE); LEUKOCYTE ESTERASE,URINE NEGATIVE (NEGATIVE); NITRITE,URINE NEGATIVE (NEGATIVE); PROTEIN,URINE NEGATIVE (NEGATIVE); URINE SPECIFIC GRAVITY 1.012; UROBILINOGEN,URINE NEGATIVE mg/dL (<2.0)
[2018-10-19 17:51] VITALS: BP 124/67
== END 2018-10-19 17:30 | disposition home or self-care (01) ==
LOC: ER 11:23
DX: K59.03 Drug induced constipation (principal); T40.2X5A Adverse effect of other opioids, initial encounter; R33.9 Retention of urine, unspecified; R10.30 Lower abdominal pain, unspecified; D72.829 Elevated white blood cell count, unspecified; I12.9 Hypertensive chronic kidney disease with stage 1 through stage 4 chronic kidney disease, or unspecified chronic kidney disease; N18.9 Chronic kidney disease, unspecified; Z98.890 Other specified postprocedural states; Z88.8 Allergy status to other drugs, medicaments and biological substances; Z88.5 Allergy status to narcotic agent; Z88.1 Allergy status to other antibiotic agents; Z88.6 Allergy status to analgesic agent; Z88.0 Allergy status to penicillin
CPT/HCPCS: 99284; 36415; 83690; 85025; 80053; 81001; 74176; J3490

== ENCOUNTER 2018-11-20 10:42 | Emergency (ER) | payer MEDICARE, OTHER ==
[2018-11-20 10:50] VITALS: BP 123/74
--- NOTE | 2018-11-20 11:36 | ER Document Report ---
ED Medical Screen (RME) - General Chief Complaint: Ear Injury Stated Complaint: EAR BLEEDING Time Seen by Provider: 11/20/18 11:21 Primary Care Provider: OSVALDO GLASGOW MD [Primary Care Provider] - Follow up as needed Notes: Patient is a 78-year-old male who presents to the emergency department with a chief complaint of left ear bleeding. Patient states he woke up around 5 AM this morning and placed hearing aid in both of his ears. Patient states they were at a breakfast when someone told him that he had some bleeding coming from his left ear. Patient reports he did pull out his hearing aid and noticed some blood. Patient denies trauma or injury. Patient denies ear pain. Patient denies an increase in hearing loss but at baseline is very hard of hearing. Patient does take Coumadin 6 mg daily for artificial heart valve. TRAVEL OUTSIDE OF THE [place] IN LAST 30 DAYS: No - Related Data Allergies/Adverse Reactions: diphenhydramine HCl [From Benadryl] Allergy (Mild, Verified 11/20/18 10:46) rash hydrocodone [Hydrocodone] Allergy (Mild, Verified 11/20/18 10:46) rash levofloxacin [From Levaquin] Allergy (Mild, Verified 11/20/18 10:46) rash acetaminophen Allergy (Verified 11/20/18 10:46) amiodarone [Amiodarone] Allergy (Verified 11/20/18 10:46) Hives ampicillin [Ampicillin] Allergy (Verified 11/20/18 10:46) Hives cephalexin [Cephalexin] Allergy (Verified 11/20/18 10:46) Hives Cephalosporins Allergy (Verified 11/20/18 10:46) Hives clindamycin [Clindamycin] Allergy (Verified 11/20/18 10:46) Hives gentamicin [Gentamicin] Allergy (Verified 11/20/18 10:46) Hives hydromorphone [Hydromorphone] Allergy (Verified 11/20/18 10:46) Hives phenylephrine Allergy (Verified 11/20/18 10:46) pramipexole [From Mirapex] Allergy (Verified 11/20/18 10:46) vancomycin [Vancomycin] Allergy (Verified 11/20/18 10:46) Hives Past Medical History - Past Medical History Cardiac Medical History: Reports: Hx Hypercholesterolemia, Hx Hypertension - MEDICATED TO MAINTAIN HEATHY BP FOR MITRAL VALVE Denies: Hx Coronary Artery Disease, Hx Heart Attack Pulmonary Medical History: Reports: Hx Pneumonia - hx of 2004 Denies: Hx Asthma, Hx Bronchitis, Hx COPD Neurological Medical History: Denies: Hx Cerebrovascular Accident, Hx Seizures Renal/ Medical History: Denies: Hx Peritoneal Dialysis GI Medical History: Denies: Hx Hepatitis, Hx Hiatal Hernia, Hx Ulcer Musculoskeltal Medical History: Denies Hx Arthritis Infectious Medical History: Denies: Hx Hepatitis Past Surgical History: Reports: Hx Cardiac Surgery - valve replacement 1999, Hx Open Heart Surgery - 1999. Denies: Hx Pacemaker Physical Exam - Vital signs Vitals: Temp Pulse Resp BP Pulse Ox 97.6 F 74 16 123/74 96 11/20/18 10:49 11/20/18 10:49 11/20/18 10:49 11/20/18 10:49 11/20/18 10:49 - HEENT Ears: Other - External ear does not reveal any erythema, edema or laceration. There is dried blood noted in the ear canal. Upon evaluation patient does appear to have a small on the anterior aspect of the ear canal. I did remove tiny blood clots. There is a very small tiny constant use. The TM is normal in appearance with visualization of landmarks -there is no perforation, effusion, or bulging. 2 x 2 gauze placed inside the ear canal. Course - Re-evaluation Re-evalutation: 11/20/18 11:35 We will obtain PT, PTT and INR. Bleeding is controlled and patient has a cause to his inner ear. Patient is nontoxic-appearing in no acute distress. I have greeted and performed a rapid initial assessment of this patient. A comprehensive ED assessment and evaluation of the patient, analysis of test results and completion of the medical decision making process will be conducted by additional ED providers. - Vital Signs Vital signs: Temp Pulse Resp BP Pulse Ox 97.6 F 74 16 123/74 96 11/20/18 10:49 11/20/18 10:49 11/20/18 10:49 11/20/18 10:49 11/20/18 10:49 Doctor's Discharge - Discharge Referrals: OSVALDO GLASGOW MD [Primary Care Provider] - Follow up as needed
[2018-11-20] MEDS ORDERED: TRANEXAMIC ACID INJ/PF 1,000 MG/10 ML SDV TOP PRN (12:00)
--- NOTE | 2018-11-20 12:04 | ER Document Report ---
HPI - HPI Time Seen by Provider: 11/20/18 11:21 Pain Level: Denies Notes: Patient is a 78-year-old male with history of heart valve replacement and on Coumadin who presents complaining of bleeding from the left ear that is been present since 8 AM this morning. Patient states that he does wear hearing aids and on occasion will use Q-tips. He has not had any changes in his hearing otherwise. He has no other concerns or complaints. No other areas of bleeding. Denies any headache, fever, head injury, neck pain, URI, sore throat, chest pain, palpitations, syncope, cough, shortness of breath, wheeze, dyspnea, abdominal pain, nausea/vomiting/diarrhea, urinary retention, dysuria, hematuria, or rash. - ROS Systems Reviewed and Negative: Yes All other systems reviewed and negative Past Medical History - Social History Smoking Status: Former Smoker Family History: Reviewed & Not Pertinent Patient has suicidal ideation: No Patient has homicidal ideation: No - Past Medical History Cardiac Medical History: Reports: Hx Hypercholesterolemia, Hx Hypertension - MEDICATED TO MAINTAIN HEATHY BP FOR MITRAL VALVE Denies: Hx Coronary Artery Disease, Hx Heart Attack Pulmonary Medical History: Reports: Hx Pneumonia - hx of 2004 Denies: Hx Asthma, Hx Bronchitis, Hx COPD Neurological Medical History: Denies: Hx Cerebrovascular Accident, Hx Seizures Renal/ Medical History: Denies: Hx Peritoneal Dialysis GI Medical History: Denies: Hx Hepatitis, Hx Hiatal Hernia, Hx Ulcer Musculoskeletal Medical History: Denies Hx Arthritis Infectious Medical History: Denies: Hx Hepatitis Past Surgical History: Reports: Hx Cardiac Surgery - valve replacement 1999, Hx Open Heart Surgery - 1999. Denies: Hx Pacemaker Vertical Provider Document - CONSTITUTIONAL Agree With Documented VS: Yes Notes: PHYSICAL EXAMINATION: GENERAL: Well-appearing, well-nourished and in no acute distress. HEAD: Atraumatic, normocephalic. EYES: Pupils equal round and reactive to light, extraocular movements intact, sclera anicteric, conjunctiva are normal. ENT: Rt EAC wnl. Lt EAC just medial to the outer ear (where it looks like his hearing aide will sit) has scant blood noted w/ scant active bleeding noted. TM's intact b/l without erythema, fluid, or perforation. Nares patent and without discharge. oropharynx clear without exudates. No tonsilar hypertrophy or erythema. Moist mucous membranes. No sinus tenderness. NECK: Normal range of motion, supple without lymphadenopathy LUNGS: Breath sounds clear to auscultation bilaterally and equal. No wheezes rales or rhonchi. HEART: Regular rate and rhythm without murmurs, rubs, gallops. NEUROLOGICAL: Cranial nerves grossly intact. Normal speech, normal gait. PSYCH: Normal mood, normal affect. SKIN: see above - INFECTION CONTROL TRAVEL OUTSIDE OF THE [place] IN LAST 30 DAYS: No Course - Re-evaluation Re-evalutation: 11/20/18 12:[address] Martinez. We will place ear wick and TXA and have him leave in until tomorrow. 11/20/18 12:50 Patient is an afebrile, well-hydrated, 78-year-old male who presents with left EAC bleeding most likely from mild trauma/abrasion to the outer EAC wall. Vitals are acceptable without significant tachycardia, tachypnea, hypoxia, hypotension. PE is otherwise unremarkable. Ear wick was placed successfully without complications and TXA applied. Patient is nontoxic-appearing and is able to tolerate p.o. without difficulty. Labs unremarkable. No further work- up warranted. Wound instructions reviewed. Low suspicion for any systemic or emergent condition at this time including significant anemia from any acute blood loss. Patient to recheck with his PCM on Thursday. Consider consult with ENT. Return to the ED with any other worsening/concerning symptoms. Patient is in agreement. - Vital Signs Vital signs: Temp Pulse Resp BP Pulse Ox 97.6 F 74 16 123/74 96 11/20/18 10:49 11/20/18 10:49 11/20/18 10:49 11/20/18 10:49 11/20/18 10:49 Procedures - Additional Procedures ear wick placement Additional Procedures: Other - Ear wick placed successfully without any complications and TXA applied Discharge - Discharge Clinical Impression: Bleeding from left ear Condition: Stable Disposition: HOME, SELF-CARE Additional Instructions: Leave ear wick in place until tomorrow. Soak the ear wick with water prior to gently pulling it out. Avoid Q-tips in the ears over the counter cold medication as needed for symptoms F/u: with your PCM in 2-3 days for a recheck Consider consult with ENT Return to the ED with any fever, dizziness, tinnitus, headaches, worsening pain, chest pain, palpitations, syncope, neck pain/stiffness, shortness of breath, wheezing, drooling, trouble swallowing/breathing, abdominal pain, n/v/d, rash, or worsening/concerning symptoms otherwise. Referrals: OSVALDO GLASGOW MD [Primary Care Provider] - 11/22/18 BROOK SELLERS DO [ASSOCIATE] - Follow up as needed
[2018-11-20 12:24] LABS: INTERNATIONAL RATION (INR) 3.05; PARTIAL THROMBOPLASTIN TIME 45.1 SEC (23.5-35.8); PROTHROMBIN TIME 32.2 SEC (11.4-15.4)
== END 2018-11-20 12:59 | disposition home or self-care (01) ==
LOC: ER 10:42
DX: H92.22 Otorrhagia, left ear (principal); Z79.01 Long term (current) use of anticoagulants; Z95.2 Presence of prosthetic heart valve; Z87.891 Personal history of nicotine dependence
CPT/HCPCS: 99283; 36415; 85610; 85730; J3490

== ENCOUNTER 2018-11-20 15:47 | Emergency (ER) | payer MEDICARE, OTHER ==
[2018-11-20 15:52] VITALS: BP 127/65
[2018-11-20] MEDS ORDERED: TRANEXAMIC ACID INJ/PF 1,000 MG/10 ML SDV TOP PRN (16:34)
--- NOTE | 2018-11-20 16:35 | ER Document Report ---
HPI - HPI Time Seen by Provider: 11/20/18 16:24 Pain Level: Denies Notes: Patient is a 78-year-old male with history of heart valve replacement and on Coumadin who presents complaining of bleeding from the left ear that is been present since 8 AM this morning. I saw him early today but the ear wick appears to be too small even when swollen to create any pressure on the wound. Patient states that he does wear hearing aids and on occasion will use Q-tips. He has not had any changes in his hearing otherwise. He has no other concerns or complaints. No other areas of bleeding. Denies any headache, fever, head injury, neck pain, URI, sore throat, chest pain, palpitations, syncope, cough, shortness of breath, wheeze, dyspnea, abdominal pain, nausea/vomiting/diarrhea, urinary retention, dysuria, hematuria, or rash. - ROS Systems Reviewed and Negative: Yes All other systems reviewed and negative - CONSTITUTIONAL Constitutional: DENIES: Fever, Chills - EENT EENT: REPORTS: Ear Pain - bleeding. DENIES: Sore Throat, Eye problems - NEURO Neurology: DENIES: Headache, Weakness, Vision blurred, Dizzinesss / Vertigo - CARDIOVASCULAR Cardiovascular: DENIES: Chest pain - RESPIRATORY Respiratory: DENIES: Trouble Breathing, Coughing - GASTROINTESTINAL Gastrointestinal: DENIES: Abdominal Pain, Black / Bloody Stools - URINARY Urinary: DENIES: Dysuria, Urgency, Frequency - MUSCULOSKELETAL Musculoskeletal: DENIES: Extremity pain Past Medical History - Social History Smoking Status: Never Smoker Chew tobacco use (# tins/day): No Frequency of alcohol use: None Drug Abuse: None Family History: Reviewed & Not Pertinent Patient has suicidal ideation: No Patient has homicidal ideation: No - Past Medical History Cardiac Medical History: Reports: Hx Hypercholesterolemia, Hx Hypertension - MEDICATED TO MAINTAIN HEATHY BP FOR MITRAL VALVE Denies: Hx Coronary Artery Disease, Hx Heart Attack Pulmonary Medical History: Reports: Hx Pneumonia - hx of 2004 Denies: Hx Asthma, Hx Bronchitis, Hx COPD Neurological Medical History: Denies: Hx Cerebrovascular Accident, Hx Seizures Renal/ Medical History: Denies: Hx Peritoneal Dialysis GI Medical History: Denies: Hx Hepatitis, Hx Hiatal Hernia, Hx Ulcer Musculoskeletal Medical History: Denies Hx Arthritis Infectious Medical History: Denies: Hx Hepatitis Past Surgical History: Reports: Hx Cardiac Surgery - valve replacement 1999, Hx Open Heart Surgery - 1999. Denies: Hx Pacemaker Vertical Provider Document - CONSTITUTIONAL Agree With Documented VS: Yes Notes: PHYSICAL EXAMINATION: GENERAL: Well-appearing, well-nourished and in no acute distress. HEAD: Atraumatic, normocephalic. EYES: Pupils equal round and reactive to light, extraocular movements intact, sclera anicteric, conjunctiva are normal. ENT: Rt EAC wnl. Lt EAC just medial to the outer ear (where it looks like his hearing aide will sit) has scant blood noted w/ scant active bleeding noted. TM's intact b/l without erythema, fluid, or perforation. Nares patent and without discharge. oropharynx clear without exudates. No tonsilar hypertrophy or erythema. Moist mucous membranes. No sinus tenderness. NECK: Normal range of motion, supple without lymphadenopathy LUNGS: Breath sounds clear to auscultation bilaterally and equal. No wheezes rales or rhonchi. HEART: Regular rate and rhythm without murmurs, rubs, gallops. NEUROLOGICAL: Cranial nerves grossly intact. Normal speech, normal gait. PSYCH: Normal mood, normal affect. SKIN: see above - INFECTION CONTROL TRAVEL OUTSIDE OF THE [place] IN LAST 30 DAYS: No Course - Re-evaluation Re-evalutation: 11/20/18 16:[address] Martinez. We will pack with cotton balls and apply TXA and have him leave in until tomorrow. 11/20/18 17:10 Patient is an afebrile, well-hydrated, 78-year-old male who presents with left EAC bleeding most likely from mild trauma/abrasion to the outer EAC wall. Vitals are acceptable without significant tachycardia, tachypnea, hypoxia, hypotension. PE is otherwise unremarkable. Ear wick was placed successfully without complications and TXA applied. Patient is nontoxic-appearing and is able to tolerate p.o. without difficulty. Labs unremarkable. No further work- up warranted. Wound instructions reviewed. Low suspicion for any systemic or emergent condition at this time including significant anemia from any acute blood loss. Patient to recheck with his PCM on Thursday. Consider consult with ENT. Return to the ED with any other worsening/concerning symptoms. Patient is in agreement. - Vital Signs Vital signs: Temp Pulse Resp BP Pulse Ox 97.6 F 80 16 127/65 H 93 11/20/18 15:51 11/20/18 15:51 11/20/18 15:51 11/20/18 15:51 11/20/18 15:51 Discharge - Discharge Clinical Impression: Bleeding from left ear Condition: Stable Disposition: HOME, SELF-CARE Additional Instructions: Leave cotton balls in place until tomorrow. Soak the ear with water prior to gently pulling out the cotton balls tomorrow. Avoid Q-tips in the ears over the counter cold medication as needed for symptoms F/u: with your PCM in 2-3 days for a recheck Consider consult with ENT Return to the ED with any fever, dizziness, tinnitus, headaches, worsening pain, chest pain, palpitations, syncope, neck pain/stiffness, shortness of breath, wheezing, drooling, trouble swallowing/breathing, abdominal pain, n/v/d, rash, or worsening/concerning symptoms otherwise. Forms: Elevated Blood Pressure Referrals: OSVALDO GLASGOW MD [Primary Care Provider] - Follow up as needed BROOK SELLERS DO [ASSOCIATE] - Follow up as needed
== END 2018-11-20 17:49 | disposition home or self-care (01) ==
LOC: ER 15:47
DX: H92.22 Otorrhagia, left ear (principal); H92.09 Otalgia, unspecified ear; I10 Essential (primary) hypertension
CPT/HCPCS: 99282; 96374; J3490

== ENCOUNTER → 2019-07-08 | Outpatient (CLI) | payer MEDICARE, OTHER ==
[2019-07-08 11:06] LABS: APPEARANCE,URINE CLEAR; BILIRUBIN,URINE NEGATIVE (NEGATIVE); COLOR,URINE STRAW; GLUCOSE, URINE NEGATIVE (NEGATIVE); KETONES,URINE NEGATIVE (NEGATIVE); LEUKOCYTE ESTERASE,URINE NEGATIVE (NEGATIVE); NITRITE,URINE NEGATIVE (NEGATIVE); PROTEIN,URINE NEGATIVE (NEGATIVE); UROBILINOGEN,URINE NEGATIVE mg/dL (<2.0)
[2019-07-08 11:16] LABS: ANION GAP 5 (5-19); BLOOD UREA NITROGEN 29 mg/dL (7-20); CALCIUM 9.4 mg/dL (8.4-10.2); CARBON DIOXIDE 28 mmol/L (22-30); CHLORIDE 105 mmol/L (98-107); GLUCOSE 93 mg/dL (75-110); POTASSIUM 4.8 mmol/L (3.6-5.0)
== END ==
LOC: OD 10:05
PROVIDERS: ATTEND Internal Medicine Nephrology
DX: N18.3 Chronic kidney disease, stage 3 (moderate) (principal)
CPT/HCPCS: 36415; 80048; 81001